=== PATIENT | female | born 1945 | race Caucasian/White ===

== ENCOUNTER → 2017-02-20 | Outpatient (CLI) | payer OTHER ==
[~2017-02-20] MED LIST: ALLERGY RELIEF10 M5 PO; APRISO0.375 GM PO; ATIVAN0.5 MG PO; Ascorbic Acid PO; CITALOPRAM HBR20 MG PO; CRESTOR20 MG PO; Caltrate 600/400 PO; ECOTRIN325 MG PO; Ecotrin PO; FISH OIL 1,0001 EAC7 PO; FLONASE16 G1 BOTH NARES; Flonase BOTH NARES; GLUCOSAMINE &1 EACH PO; GLUCOSAMINE CH1 EAC2 PO; GLUCOSAMINE CH1 EACH PO; HIGH POTENCY C600 MG PO; HYDROCODON-ACE1 EAC8 PO; Humibid LA,Mucinex PO; LIPITOR40 MG PO; LUMIGAN 0.50 DROP/22 BOTH EYES; MAGNESIUM100 MG PO; METAMUCIL PACKE1 PKT PO; MUCINEX600 MG PO; Magnesium PO; Metamucil Packet PO; Move Free Advanced T PO; NORCO 5/3251 TABLET PO; Norco 7.5/325 PO; OMEGA 3 1,0001 EACH PO; ONE-A-DAY WOME1 EAC5 PO; Omega III EPA + DHA PO; PRILOSEC20 MG PO; PROBIOTIC1 EAC1 PO; Pyridoxine,Vitamin B PO; SYSTANE ULTRA 015 ML BOTH EYES; TIZANIDINE HCL4 M1 PO; Theragran W/Iron,MVI PO; VITAMIN B-12500 MC2 PO; VITAMIN B-650 M1 PO; VITAMIN C1000 MG PO; VITAMIN D1000 UNIT PO; VITAMIN D31000 UNIT PO; Vitamin B-12 PO; WOMEN'S DAILY1 EAC1 PO; ZANAFLEX4 M1 PO; ZANAFLEX4 MG PO; ZENPEP DR 10,01 EACH PO; ZYRTEC10 M3 PO; ZyrTEC PO; celeXA PO; essential enzymes
== END | disposition home or self-care (01) ==
LOC: EEG 08:47
DX: G45.3 Amaurosis fugax (principal)
CPT/HCPCS: 95819